=== PATIENT | female | born 1975 ===

== ENCOUNTER 2019-02-11 12:16 | Emergency (ER) | payer BC ==
[2019-02-11 12:23] VITALS: BP 141/80
[2019-02-11] MEDS ORDERED: ASPIRIN CHEW 81 MG TABLET PO STA (13:19)
--- NOTE | 2019-02-11 13:24 | ED Physician Documentation ---
History of Present Illness - Stated complaint Stated Complaint: LT ARM TINGLES - Chief complaint Chief Complaint: General - History obtained from History obtained from: Patient - History of Present Illness Timing: Today, How many hours ago (3-4 hours) Pain level max: 2 Pain level now: 1 - Additonal information Additional information: states chest tightness for the past several hours and tingling to the L arm. Constant. nothing makes it better or worse. No change with breathing. No nausea or vomiting. No shortness of breath. States is been under a large amount of stress recently. She was at work when this started. No history of cardiac problems. She does smoke. Is not on medications at home. Has never had similar symptoms in the past. She also states that her left arm is tingling from her left elbow down. Review of Systems Constitutional: denies: Fever, Chills Cardiac: denies: Chest pain / pressure Respiratory: denies: Cough GI: denies: Vomiting, Diarrhea : denies: Dysuria Skin: denies: Rash Musculoskeletal: denies: Neck pain, Back pain Neurologic: denies: Headache PD PAST MEDICAL HISTORY - Past Medical History Past Medical History: No - Past Surgical History Past Surgical History: No - Present Medications Home Medications: Ambulatory Orders Medication Instructions Recorded Confirmed No Known Home Medications 02/11/19 02/11/19 - Allergies Allergies/Adverse Reactions: Allergies Allergy/AdvReac Type Severity Reaction Status Date / Time morphine Allergy Hives Verified 02/11/19 12:23 Penicillins Allergy Hives Verified 02/11/19 12:23 - Living Situation Living Situation: reports: With family Living Arrangement: reports: At home - Social History Does the pt smoke?: Yes Does the pt drink ETOH?: No Does the pt have substance abuse?: No - Family History Family history: reports: Non contributory PD ED PE NORMAL - Vitals Vital signs reviewed: Yes - General General: Alert and oriented X 3, No acute distress, Well developed/nourished - HEENT HEENT: PERRL, Moist mucous membranes - Neck Neck: Supple, no meningeal sign, No bony TTP - Cardiac Cardiac: RRR, Strong equal pulses - Respiratory Respiratory: No respiratory distress, Clear bilaterally - Abdomen Abdomen: Soft, Non tender, Non distended - Back Back: No CVA TTP, No spinal TTP - Derm Derm: Warm and dry, No rash - Extremities Extremities: No edema - Neuro Neuro: Alert and oriented X 3 - Psych Psych: Normal mood, Normal affect Results - Vitals Vitals: Vital Signs - 24 hr 02/11/19 12:21 Temperature 36.7 C Heart Rate 97 Respiratory 18 Rate Blood Pressure 141/80 H O2 Saturation 99 Oxygen O2 Source Room air - EKG (time done) 1323 Rate: Rate (enter#) (82) Rhythm: NSR [place]: Normal Intervals: Normal DC QRS: Normal Ischemia: Normal ST segments - Labs Labs: Laboratory Tests 02/11/19 02/11/19 02/11/19 13:31 13:31 13:31 WBC 6.7 RBC 4.93 Hgb 15.2 Hct 45.9 MCV 93.1 MCH 30.8 MCHC 33.1 RDW 12.9 Plt Count 387 MPV 9.4 Neut # (Auto) 4.8 Lymph # (Auto) 1.5 [place] # (Auto) 0.3 Eos # (Auto) 0.1 Baso # (Auto) 0.0 Absolute Nucleated RBC 0.00 Nucleated RBC % 0.0 Sodium 138 Potassium 4.0 Chloride 101 Carbon Dioxide 28 Anion Gap 9.0 BUN 12 Creatinine 0.9 Estimated GFR (MDRD) 67 L Glucose 106 H Calcium 8.8 Total Bilirubin 0.5 AST 17 ALT 24 Alkaline Phosphatase 61 Troponin I High Sens < 2.3 L Total Protein 6.8 Albumin 4.0 Globulin 2.8 Albumin/Globulin Ratio 1.4 Lipase 30 - Rads (name of study) Chest x-ray Radiology: Prelim report reviewed, EMP read contemporaneously, See rad report (No acute disease) PD MEDICAL DECISION MAKING - ED course Complexity details: reviewed results, re-evaluated patient, considered differential (No ST elevation MN, no aortic dissection, no PE, no tension pneumo thorax, no aortic aneurysm), d/w patient ED course: Patient with symptoms of unclear etiology. We will have her follow-up with her doctor for further care. No acute findings on laboratory testing, EKG, chest x- ray. She is well-appearing, nontoxic. Increase in stress at work, possible anxiety reaction? Patient counseled regarding signs and symptoms for which I believe and urgent re-evaluation would be necessary. Patient with good understanding of and agreement to plan and is comfortable going home at this time This document was made in part using voice recognition software. While efforts are made to proofread this document, sound alike and grammatical errors may occur. Departure - Departure Disposition: 01 Home, Self Care Clinical Impression: Paresthesia Condition: Good Instructions: ED Paraesthesias Follow-Up: Your,doctor in 1 week [Other] Comments: Return if you worsen. Follow-up with your doctor for further care. The cause of your symptoms is unclear today. Your heart tests are normal. your laboratory tests are normal. Discharge Date/Time: 02/11/19 14:34
[2019-02-11 13:38] LABS: BASOPHILS % (AUTO) 0.6 %; EOSINOPHILS # (AUTO) 0.1 10^3/uL (0.0-0.7); EOSINOPHILS % (AUTO) 0.9 %; HGB - HEMOGLOBIN 15.2 g/dL (12.0-16.0); LYMPHOCYTES # (AUTO) 1.5 10^3/uL (1.5-3.5); MEAN CORPUSCULAR HEMOGLOBIN 30.8 pg (27.0-31.0); MEAN CORPUSCULAR HGB CONC 33.1 g/dL (32.0-36.0); MEAN CORPUSCULAR VOLUME 93.1 fL (81.0-99.0); MEAN PLATELET VOLUME 9.4 fL (7.9-10.8); MONOCYTES # (AUTO) 0.3 10^3/uL (0.0-1.0); MONOCYTES % (AUTO) 4.2 %; NEUTROPHILS # (AUTO) 4.8 10^3/uL (1.5-6.6); PLT - PLATELET COUNT 387 10^3/uL (130-450); RED BLOOD COUNT 4.93 10^6/uL (4.20-5.40); RED CELL DISTRIBUTION WIDTH 12.9 % (12.0-15.0); WHITE BLOOD COUNT 6.7 x10^3/uL (4.8-10.8)
[2019-02-11 13:51] LABS: ALBUMIN/GLOBULIN RATIO 1.4 (1.0-2.2); BILIRUBIN,TOTAL 0.5 mg/dL (0.2-1.0); CALCIUM 8.8 mg/dL (8.5-10.3); CREATININE 0.9 mg/dL (0.4-1.0); TOTAL PROTEIN 6.8 g/dL (6.7-8.2)
--- NOTE | 2019-02-11 14:09 | XRAY Report ---
Reason: Chest Pain Procedure Date: 02/11/2019 Accession Number: [id number] / [id number] Procedure: XR - Chest 1 View X-Ray CPT Code: 43376 FULL RESULT: EXAM: CHEST RADIOGRAPHY EXAM DATE: 02/11/2019 01:46 PM. CLINICAL HISTORY: Chest Pain. COMPARISON: None. TECHNIQUE: 1 view. FINDINGS: Lungs/Pleura: No focal opacities evident. No pleural effusion. No pneumothorax. Mediastinum: Within exam limitations, the cardiomediastinal contour is normal. Other: None. IMPRESSION: No focal consolidation. RADIA
== END 2019-02-11 14:34 | disposition home or self-care (01) ==
LOC: ED 12:16
DX: R20.2 Paresthesia of skin (principal); F17.200 Nicotine dependence, unspecified, uncomplicated
CPT/HCPCS: 36415; 71045; 80053; 83690; 84484; 85025; 93005; 99282; 99284; A9270

== ENCOUNTER 2019-02-16 13:20 | Outpatient (CLI) | payer BC ==
--- NOTE | 2019-02-18 11:28 | Mammography Report ---
Reason: ROUTINE MAMMO Procedure Date: 02/16/2019 Accession Number: [id number] / [id number] Procedure: MGN - Screening Mammo Dig Bilat CPT Code: Final Report FULL RESULT: EXAM: Screening Mammo Dig Bilat DATE: 02/16/2019 1:43 PM CLINICAL HISTORY: Baseline screening mammogram TECHNIQUE: (B) - Bilateral CC and MLO views were obtained. COMPARISON: None PARENCHYMAL PATTERN: (A) - The breasts demonstrate scattered fibroglandular densities bilaterally. FINDINGS: There are no suspicious masses, calcifications, skin thickening, or areas of distortion. IMPRESSION: Negative examination. BI-RADS category 1. RECOMMENDATION: (ANNUAL) - Recommend routine annual screening mammography. BI-RADS CATEGORY: (1) - Negative. STANDARD QUALIFYING STATEMENTS: 1. This examination was not reviewed with the aid of Computer-Aided Detection (CAD). 2. A negative or benign imaging report should not preclude biopsy if clinically suspicious findings are present. 3. Dense breasts may obscure an underlying neoplasm. 4. This examination was reviewed without the aid of 3D breast imaging (tomosynthesis).
== END 2019-02-16 13:21 | disposition home or self-care (01) ==
LOC: DI.N 13:20
PROVIDERS: ATTEND Obstetrics & Gynecology
DX: Z12.31 Encounter for screening mammogram for malignant neoplasm of breast (principal)
CPT/HCPCS: 77067

== ENCOUNTER 2019-06-02 11:32 | Emergency (ER) | payer BC ==
[2019-06-02 12:09] LABS: BASOPHILS % (AUTO) 0.4 %; EOSINOPHILS # (AUTO) 0.2 10^3/uL (0.0-0.7); EOSINOPHILS % (AUTO) 2.3 %; HGB - HEMOGLOBIN 14.6 g/dL (12.0-16.0); LYMPHOCYTES # (AUTO) 2.2 10^3/uL (1.5-3.5); LYMPHOCYTES % (AUTO) 32.5 %; MEAN CORPUSCULAR HEMOGLOBIN 30.6 pg (27.0-31.0); MEAN CORPUSCULAR HGB CONC 33.3 g/dL (32.0-36.0); MEAN PLATELET VOLUME 10.4 fL (7.9-10.8); MONOCYTES # (AUTO) 0.3 10^3/uL (0.0-1.0); MONOCYTES % (AUTO) 4.2 %; NEUTROPHILS # (AUTO) 4.2 10^3/uL (1.5-6.6); NEUTROPHILS % (AUTO) 60.3 %; PLT - PLATELET COUNT 337 10^3/uL (130-450); RED BLOOD COUNT 4.77 10^6/uL (4.20-5.40); RED CELL DISTRIBUTION WIDTH 12.9 % (12.0-15.0); WHITE BLOOD COUNT 6.9 x10^3/uL (4.8-10.8)
--- NOTE | 2019-06-02 12:20 | ED Physician Documentation ---
PD HPI ABD PAIN - Stated complaint Stated Complaint: FEMALE - Chief complaint Chief Complaint: Abd Pain - History obtained from History obtained from: Patient - History of Present Illness Timing - onset: How many weeks ago (1), Other (44-year-old woman status post lap band placed in [place] 11 years ago presents with 1 weeks worth of epigastric pain with a aching radiating to both sides of the bra line. No other radiation i.e. no radiation to the back or shoulders. No change with eating or drinking. No changes in bowel movements. No nausea. No chest pain or trouble breathing. She has been gaining weight over the last few months so wonders if her lap band might not be working. No other abdominal surgeries.) Timing - details: Gradual onset, Constant Review of Systems Ten Systems: 10 systems reviewed and negative Constitutional: denies: Fever, Chills, Weight Loss Eyes: denies: Loss of vision GI: reports: Abdominal Pain (See HPI). denies: Nausea, Vomiting, Constipation, Diarrhea PD PAST MEDICAL HISTORY - Past Medical History Past Medical History: Yes Psych: Depression - Past Surgical History Past Surgical History: Yes General: Gastric surgery (lap band) - Present Medications Home Medications: Ambulatory Orders Medication Instructions Recorded Confirmed Citalopram [CeleXA] 20 mg PO DAILY 06/02/19 06/02/19 Omeprazole Magnesium [Prilosec] 2 packet PO DAILY #120 suspdr.pkt 06/02/19 - Allergies Allergies/Adverse Reactions: Allergies Allergy/AdvReac Type Severity Reaction Status Date / Time morphine Allergy Hives Verified 06/02/19 11:41 Penicillins Allergy Hives Verified 06/02/19 11:41 - Social History Does the pt smoke?: Yes Smoking Status: Current every day smoker Does the pt drink ETOH?: No Does the pt have substance abuse?: No - Family History Family history: reports: Non contributory - POLST Patient has POLST: No PD ED PE NORMAL - Vitals Vital signs reviewed: Yes - General General: Alert and oriented X 3, No acute distress - HEENT HEENT: PERRL, EOMI - Neck Neck: Supple, no meningeal sign, No bony TTP - Cardiac Cardiac: RRR, No murmur - Respiratory Respiratory: No respiratory distress, Clear bilaterally - Abdomen Abdomen: Normal bowel sounds, Soft, Other (Minimal epigastric tenderness with mild tenderness of the port itself which is a little deep. No surgical signs.) - Back Back: No CVA TTP, No spinal TTP - Derm Derm: Normal color, Warm and dry - Extremities Extremities: No edema, No calf tenderness / cord - Neuro Neuro: Alert and oriented X 3, Normal speech Results - Vitals Vitals: Vital Signs - 24 hr 06/02/19 06/02/19 06/02/19 11:37 13:53 15:35 Temperature 36.4 C L Heart Rate 104 H 84 71 Respiratory 18 18 18 Rate Blood Pressure 125/87 H 113/64 113/69 O2 Saturation 99 98 100 Oxygen O2 Source Room air - EKG (time done) 1245 Rate: Rate (enter#) (77) Rhythm: NSR [place]: Normal Intervals: Normal [place] QRS: Normal Ischemia: Normal ST segments Computer interpretation: Agree with computer - Labs Labs: Laboratory Tests 06/02/19 06/02/19 06/02/19 12:00 12:00 12:50 WBC 6.9 RBC 4.77 Hgb 14.6 Hct 43.9 MCV 92.0 MCH 30.6 MCHC 33.3 RDW 12.9 Plt Count 337 MPV 10.4 Neut # (Auto) 4.2 Lymph # (Auto) 2.2 [place] # (Auto) 0.3 Eos # (Auto) 0.2 Baso # (Auto) 0.0 Absolute Nucleated RBC 0.00 Nucleated RBC % 0.0 Sodium 140 Potassium 4.1 Chloride 102 Carbon Dioxide 27 Anion Gap 11.0 BUN 23 H Creatinine 1.0 Estimated GFR (MDRD) 60 L Glucose 107 H Calcium 9.6 Total Bilirubin 0.5 AST 20 ALT 28 Alkaline Phosphatase 60 Total Protein 6.8 Albumin 3.9 Globulin 2.9 Albumin/Globulin Ratio 1.3 Lipase 38 Urine Color YELLOW Urine Clarity CLEAR Urine pH 6.0 Ur Specific Rena Lara 1.020 Urine Protein NEGATIVE Urine Glucose (UA) NEGATIVE Urine Ketones NEGATIVE Urine Occult Blood NEGATIVE Urine Nitrite NEGATIVE Urine Bilirubin NEGATIVE Urine Urobilinogen 0.2 (NORMAL) Ur Leukocyte Esterase NEGATIVE Ur Microscopic Review NOT INDICATED Urine Culture Comments NOT INDICATED Urine HCG, Qual 06/02/19 12:50 WBC RBC Hgb Hct MCV MCH MCHC RDW Plt Count MPV Neut # (Auto) Lymph # (Auto) [place] # (Auto) Eos # (Auto) Baso # (Auto) Absolute Nucleated RBC Nucleated RBC % Sodium Potassium Chloride Carbon Dioxide Anion Gap BUN Creatinine Estimated GFR (MDRD) Glucose Calcium Total Bilirubin AST ALT Alkaline Phosphatase Total Protein Albumin Globulin Albumin/Globulin Ratio Lipase Urine Color Urine Clarity Urine pH Ur Specific Rena Lara 1.020 Urine Protein Urine Glucose (UA) Urine Ketones Urine Occult Blood Urine Nitrite Urine Bilirubin Urine Urobilinogen Ur Leukocyte Esterase Ur Microscopic Review Urine Culture Comments Urine HCG, Qual NEGATIVE - Rads (name of study) CT A/P with PO/IV contrast Radiology: EMP read contemporaneously PD MEDICAL DECISION MAKING - ED course ED course: 44-year-old woman with history of a LAP-BAND with epigastric pain. She is not tender. Her labs are normal. A CT with contrast, both oral and IV showed fibroids which are clearly not the source of the current tissue, and was otherwise negative. She declined pain medication. She will follow-up with her PCP for consideration for GI referral and endoscopy and we will start a PPI in the interim noting that she needs to take liquid medications. Departure - Departure Disposition: 01 Home, Self Care Clinical Impression: Abdominal pain Instructions: Abdominal Pain Prescriptions: Omeprazole Magnesium [Prilosec] 2 packet PO DAILY #120 suspdr.pkt Comments: Your work-up today was unremarkable, with the exception of uterine fibroids on your CT scan. Please take Omeprazole each day to help with your abdominal pain. Please follow-up with your primary care physician to discuss the possibility of further work-up of your pain. Discharge Date/Time: 06/02/19 15:35
[2019-06-02 12:22] LABS: ALBUMIN 3.9 g/dL (3.2-5.5); ALBUMIN/GLOBULIN RATIO 1.3 (1.0-2.2); BILIRUBIN,TOTAL 0.5 mg/dL (0.2-1.0); CALCIUM 9.6 mg/dL (8.5-10.3); TOTAL PROTEIN 6.8 g/dL (6.7-8.2)
[2019-06-02] MEDS ORDERED: IOVERSOL 320 50 ML VIAL ONE (12:32)
[2019-06-02] MEDS ORDERED: IOVERSOL 320 100 ML VIAL IVP ONE ×2 (12:32→14:11)
[2019-06-02 13:14] LABS: BILIRUBIN,URINE NEGATIVE (NEGATIVE); CLARITY,URINE CLEAR (CLEAR); GLUCOSE, URINE (UA) NEGATIVE (NEGATIVE); HCG UR QUAL NEGATIVE; KETONES,URINE (UA) NEGATIVE (NEGATIVE); LEUKOCYTE ESTERASE, URINE NEGATIVE (NEGATIVE); NITRITE,URINE NEGATIVE (NEGATIVE); OCCULT BLOOD,URINE NEGATIVE (NEGATIVE); PROTEIN,URINE NEGATIVE (NEGATIVE); UROBILINOGEN,URINE 0.2 (NORMAL) E.U./dL (NORMAL)
[2019-06-02] MEDS ORDERED: IOVERSOL 320 50 ML VIAL PO ONE (14:11)
--- NOTE | 2019-06-02 14:34 | CT Report ---
Reason: IV and PO contrast, abd pain, lap band Procedure Date: 06/02/2019 Accession Number: [id number] / [id number] Procedure: CT - Abdomen/Pelvis W CPT Code: Final Report FULL RESULT: EXAM: CT ABDOMEN AND PELVIS EXAM DATE: 06/02/2019 02:14 PM. CLINICAL HISTORY: IV and PO contrast, abd pain, lap band. COMPARISONS: None. TECHNIQUE: Routine helical CT imaging was performed through the abdomen and pelvis. IV contrast: OPTIRAY 320. Enteric contrast: No. Reconstructions: Coronal and sagittal. In accordance with CT protocol optimization, one or more of the following dose reduction techniques were utilized for this exam: automated exposure control, adjustment of mA and/or KV based on patient size, or use of iterative reconstructive technique. FINDINGS: Lung Bases: Unremarkable. Liver: Normal. No masses. Gallbladder/Bile Ducts: Unremarkable. Spleen: Normal. Pancreas: Normal. Adrenal Glands: Normal. Kidneys: Normal. No masses or hydronephrosis. Peritoneal Cavity/Bowel: Post gastric band. . Increased fecal material. There is air and contrast-filled small bowel loops No free fluid, free air or adenopathy. No masses or acute inflammatory process. The appendix is well visualized and normal. Pelvic Organs: Fibroid uterus The bladder and visualized pelvic organs are otherwise within normal limits. Vasculature: No aneurysms or other significant abnormality. Bones: No significant abnormality. Other: None. IMPRESSION: 1. Fibroid uterus. 2. Normal appendix RADIA
[2019-06-02 15:35] VITALS: BP 113/69
== END 2019-06-02 15:35 | disposition home or self-care (01) ==
LOC: ED 11:32
DX: R10.13 Epigastric pain (principal); D25.9 Leiomyoma of uterus, unspecified; Z98.84 Bariatric surgery status; F17.200 Nicotine dependence, unspecified, uncomplicated
CPT/HCPCS: 36415; 74177; 80053; 81003; 81025; 83690; 85025; 93005; 99284; Q9967; 81001; 87086